=== PATIENT | female | born 1980 | race Caucasian/White ===

== ENCOUNTER 2017-09-19 13:44 | Emergency (ER) | payer OTHER, SELFPAY ==
[2017-09-19 15:11] VITALS: BP 113/72; PULSE 85; RESP 20; TEMP 36.6; O2SAT 100; BMI 24.0
[2017-09-19 15:23] LABS: UTC Influenza A Antigen Negative (Negative); UTC Influenza B Antigen Negative (Negative)
--- NOTE | 2017-09-19 16:03 | HMH.EDUTC ---
[facility] [place] Impression: Influenza-like illness, Exposure to the flu Disposition: Home, Self-Care Condition on Discharge: Good Instructions: DI for Viral Upper Respiratory Infection -- Adult, DI for Influenza -- Adult Additional Instructions: * No sign of bacterial infection. Likely viral. Virus can take 7-14 days to run their course. this could be the onset of the flu but a false negative flu test since symptoms just started. * Start Tamiflu today if you are going to take it. Discussed risks and possible benefits. * Lots of rest * Increase fluids, water, gatorade, powerade, pedialyte if infant/toddler/child * Monitor Temp. Tylenol every 4 hours as needed no more then 5 times a day or 4000mg in 24 hours and/or ibuprofen every 6 hours as needed no more then 3200mg in 24 hours (as long as your primary care doctor has told you that it is ok to take both) for fever/aches/pain. ER if fever no less than 101 despite tylenol and Ibuprofen * You (or your child) are contagious until no fever, aches, chills x 24 hours without medication for symptoms. * warm salt water gargles * warm fluids * sore throat lozenges * sleep elevated * humidifier/vaporizer Prescriptions: Oseltamivir Phosphate [Tamiflu 75mg Capsule] 75 mg PO BID #10 cap Referrals: Binta Driver APRN [Primary Care Provider] - (IMMEDIATELY for new or worsening symptoms, improvement followed by suddenly feeling worse OR no noticeable improvement over the next 48-72 hours. 911 for difficulty breathing ) Time of Disposition: 16:27 Medical Decision Making Vital Signs: 09/19/17 15:11 Temperature 97.9 F Temperature Source Temporal Artery Scan Pulse Rate [Right Radial] 85 Respiratory Rate 20 Blood Pressure [Right Arm] 113/72 Blood Pressure Mean [Right Arm] 85 Blood Pressure Source [Right Arm] Automatic Cuff Blood Pressure Position [Right Arm] Sitting 02 Sat by Pulse Oximetry 100 Oxygen Delivery Method Room Air - Lab Data Lab Results 09/19/17 15:12: Influenza Type A Ag Negative, Influenza Type B Ag Negative - Claude Inquiry Pt receiving controlled substance: No [facility] [place] - General Stated complaint: cough,runny nose,poss flu Time Seen by Provider: 09/19/17 16:03 Mode of Arrival: Family Vehicle Source of Information: Patient Limitations: No Limitations Description of Symptoms (Recalled from Triage Doc. by RN): COUGHING, STUFFY NOSE, FEVERISH, CHILLS. HEENT Symptoms (Recalled from RN notes): Yes (RUNNY NOSE, FEVERISH, CHILLS) Resp Symptoms (Recalled from RN notes): Yes (COUGH) Skin Symptoms (Recalled from RN notes): No MS Symptoms (Recalled from RN notes): No Functional Status (Recalled from RN notes): NA - History of Present Illness Provider Complaint: c/o possible flu. Cough, stuffy nose, feeling feverish and chills new today. Son w/ flu yesterday and spouse dx 2 days ago. Wants flu test and tamiflu. hasn't taken or tried anything for symptoms. Has had flu vaccine. - Related Data Home Medications Medication Instructions Recorded Confirmed Metoprolol Tartrate [Lopressor 25 mg PO BID 09/19/17 09/19/17 25mg tablet] Previous Rx's Medication Instructions Recorded Oseltamivir Phosphate [Tamiflu 75 mg PO BID #10 cap 09/19/17 75mg Capsule] Allergies Allergy/AdvReac Type Severity Reaction Status Date / Time No Known Allergies Allergy Verified 09/19/17 15:17 - Worker's Comp Is this a Worker's Comp case?: No [facility] History I have reviewed the patient's past medical history: Yes (seasonal allergies, irregular HR) Other Surgeries: Yes: Tubal Ligation, Other (uteral ablation) - *Social History Alcohol Intake: never - Psychiatric History Expresses thoughts of harming self/others: None Suicide Plan Description: No Plan ROS Obtained: Yes Systems reviewed as appropropriate & no additional complaint - Constitutional Reports chills, Reports fatigue, Denies anorexia, Denies body ache(s) - Eyes Denies discharge
--- NOTE | 2017-09-19 16:09 | ED_ITS ---
[facility] – [place] Disposition Clinical Impression: Influenza-like illness, Exposure to the flu Disposition: Home, Self-Care Condition on Discharge: Good Instructions: DI for Viral Upper Respiratory Infection -- Adult, DI for Influenza -- Adult Additional Instructions: * No sign of bacterial infection. Likely viral. Virus can take 7-14 days to run their course. this could be the onset of the flu but a false negative flu test since symptoms just started. * Start Tamiflu today if you are going to take it. Discussed risks and possible benefits. * Lots of rest * Increase fluids, water, gatorade, powerade, pedialyte if infant/toddler/child * Monitor Temp. Tylenol every 4 hours as needed no more then 5 times a day or 4000mg in 24 hours and/or ibuprofen every 6 hours as needed no more then 3200mg in 24 hours (as long as your primary care doctor has told you that it is ok to take both) for fever/aches/pain. ER if fever no less than 101 despite tylenol and Ibuprofen * You (or your child) are contagious until no fever, aches, chills x 24 hours without medication for symptoms. * warm salt water gargles * warm fluids * sore throat lozenges * sleep elevated * humidifier/vaporizer Prescriptions: Oseltamivir Phosphate [Tamiflu 75mg Capsule] 75 mg PO BID #10 cap Referrals: Binta Driver APRN [Primary Care Provider] - (IMMEDIATELY for new or worsening symptoms, improvement followed by suddenly feeling worse OR no noticeable improvement over the next 48-72 hours. 911 for difficulty breathing ) Time of Disposition: 16:27 Medical Decision Making Vital Signs: 09/19/17 15:11 Temperature 97.9 F Temperature Source Temporal Artery Scan Pulse Rate [Right Radial] 85 Respiratory Rate 20 Blood Pressure [Right Arm] 113/72 Blood Pressure Mean [Right Arm] 85 Blood Pressure Source [Right Arm] Automatic Cuff Blood Pressure Position [Right Arm] Sitting 02 Sat by Pulse Oximetry 100 Oxygen Delivery Method Room Air - Lab Data Lab Results 09/19/17 15:12: Influenza Type A Ag Negative, Influenza Type B Ag Negative - Claude Inquiry Pt receiving controlled substance: No [facility] [place] HPI - General Stated complaint: cough,runny nose,poss flu Time Seen by Provider: 09/19/17 16:03 Mode of Arrival: Family Vehicle Source of Information: Patient Limitations: No Limitations Description of Symptoms (Recalled from Triage Doc. by RN): COUGHING, STUFFY NOSE , FEVERISH, CHILLS. HEENT Symptoms (Recalled from RN notes): Yes (RUNNY NOSE, FEVERISH, CHILLS) Resp Symptoms (Recalled from RN notes): Yes (COUGH) Skin Symptoms (Recalled from RN notes): No MS Symptoms (Recalled from RN notes): No Functional Status (Recalled from RN notes): NA - History of Present Illness Provider Complaint: c/o possible flu. Cough, stuffy nose, feeling feverish and chills new today. Son w/ flu yesterday and spouse dx 2 days ago. Wants flu test and tamiflu. hasn't taken or tried anything for symptoms. Has had flu vaccine. - Related Data Home Medications Medication Instructions Recorded Confirmed Metoprolol Tartrate [Lopressor 25 mg PO BID 09/19/17 09/19/17 25mg tablet] Previous Rx's Medication Instructions Recorded Oseltamivir Phosphate [Tamiflu 75 mg PO BID #10 cap 09/19/17 75mg Capsule] Allergies Allergy/AdvReac Type Severity Reaction Status Date / Time No Known Allergies Allergy Verified
== END 2017-09-19 16:36 | disposition home or self-care (01) ==
PROVIDERS: Emergency Provider Nurse Practitioner Family; Family Provider Nurse Practitioner Family; PCP Nurse Practitioner Family
DX: Z20.828 Contact with and (suspected) exposure to other viral communicable diseases (principal); R05 Cough; R50.9 Fever, unspecified
CPT/HCPCS: 87276; 87804; 99202

== ENCOUNTER 2017-10-03 08:57 | Emergency (ER) | payer OTHER, SELFPAY ==
[2017-10-03 08:58] VITALS: BP 122/74; PULSE 74; RESP 16; TEMP 36.5; O2SAT 99; BMI 22.4
--- NOTE | 2017-10-03 09:10 | HMH.EDUTC ---
[facility] – [place] Disposition Clinical Impression: Viral URI Disposition: Home, Self-Care Condition on Discharge: Good Instructions: DI for Fever (Symptom) -- Adult Additional Instructions: * Monitor Temp. Tylenol and/or Ibuprofen as needed. ER if fever is no less than 101 despite alternating Tylenol and Ibuprofen * Encourage fluids, water, Gatorade, powerade, pedialyte if /toddler/or child * Warm salt water gargles for throat irritation *Warm fluids *Sore throat lozenges *Sleep elevated *humidifier or vaporizer Lots of rest Increase fluids, water, Gatorade, powerade *Flonase 2 sprays each nostril daily but may take 2-3 days to notice improvement with it *Bromfed may cause drowsiness. Know how it effect you or your child. Before driving, caring for small children or sending your child to school *Your throat swab was sent to lab for culture. Those results area typically sent to your primary care physician. Be sure to follow up in 2-3 days if no improvement so they can review those results and treat if necessary If you dont have primary care I recommend you get one, but in the mean time you will have to return to a walk in clinic Follow up IMMEDIATELY for new or worsening of symptoms OR no noticeable improvement over the next 48-72 hours. 911 immediately for any life threatening symptoms such as chest pain or difficulty breathing Prescriptions: Brompheniramine/Pseudoephed/Dm [Bromfed DM Cough Syrup 5mL] 10 ml PO Q4H PRN #200 syrup PRN Reason: Cough Fluticasone Propionate [Flonase 50mcg nasal spray 16gm] 2 spr NS DAILY #1 bottle Loratadine [Claritin 10mg Tablet] 10 mg PO DAILY #30 tab Referrals: Binta Driver APRN [Primary Care Provider] - Time of Disposition: 09:28 Medical Decision Making - Medical Records Medical records reviewed: Yes: I reviewed the patient's medical records. Vital Signs: 10/03/17 08:58 Temperature 97.7 F Temperature Source Oral Pulse Rate [Left Brachial] 74 Respiratory Rate 16 Blood Pressure [Right Arm] 122/74 Blood Pressure Mean [Right Arm] 90 Blood Pressure Source [Right Arm] Automatic Cuff Blood Pressure Position [Right Arm] Sitting 02 Sat by Pulse Oximetry 99 Oxygen Delivery Method Room Air - Claude Inquiry Pt receiving controlled substance: No Claude was queried for this patient: No [facility] [place] HPI - General Stated complaint: headache chills nausea Mode of Arrival: Ambulatory Source of Information: Patient Limitations: No Limitations Description of Symptoms (Recalled from Triage Doc. by RN): Pt c/o low grade fever and nausea this morning HEENT Symptoms (Recalled from RN notes): No Resp Symptoms (Recalled from RN notes): No Skin Symptoms (Recalled from RN notes): No MS Symptoms (Recalled from RN notes): No Functional Status (Recalled from RN notes): NA - History of Present Illness Provider Complaint: Patient states that she has the flu about 3-4 weeks ago State that she feels the same way as she did then State that she has been having fever, chills, sinus pain and pressure along with some nausea since yesterday State that last night her fever was 101.0 States that she thinks she thinks she has the flu again. State that her nose has been running clear - Related Data Home Medications Medication Instructions Recorded Confirmed Metoprolol Tartrate [Lopressor 25 mg PO BID 09/19/17 09/19/17 25mg tablet] Previous Rx's Medication Instructions Recorded Oseltamivir Phosphate [Tamiflu 75 mg PO BID #10 cap 09/19/17 75mg Capsule] Brompheniramine/Pseudoephed/Dm 10 ml PO Q4H PRN #200 syrup 10/03/17 [Bromfed DM Cough Syrup 5mL] Fluticasone Propionate [Flonase 2 spr NS DAILY #1 bottle 10/03/17 50mcg nasal spray 16gm] Loratadine [Claritin 10mg Tablet] 10 mg PO DAILY #30 tab 10/03/17 Allergies Allergy/AdvReac Type Severity Reaction Status Date / Time No Known Allergies Allergy Verified 09/19/17 15:17 - Worker's Comp Is this a Worker's Comp case?: No [facility] History I
--- NOTE | 2017-10-03 09:14 | ED_ITS ---
[facility] [place] Clinical Impression: Viral URI Disposition: Home, Self-Care Condition on Discharge: Good Instructions: DI for Fever (Symptom) -- Adult Additional Instructions: * Monitor Temp. Tylenol and/or Ibuprofen as needed. ER if fever is no less than 101 despite alternating Tylenol and Ibuprofen * Encourage fluids, water, Gatorade, powerade, pedialyte if /toddler/or child * Warm salt water gargles for throat irritation *Warm fluids *Sore throat lozenges *Sleep elevated *humidifier or vaporizer Lots of rest Increase fluids, water, Gatorade, powerade *Flonase 2 sprays each nostril daily but may take 2-3 days to notice improvement with it *Bromfed may cause drowsiness. Know how it effect you or your child. Before driving, caring for small children or sending your child to school *Your throat swab was sent to lab for culture. Those results area typically sent to your primary care physician. Be sure to follow up in 2-3 days if no improvement so they can review those results and treat if necessary If you don? t have primary care I recommend you get one, but in the mean time you will have to return to a walk in clinic Follow up IMMEDIATELY for new or worsening of symptoms OR no noticeable improvement over the next 48-72 hours. 911 immediately for any life threatening symptoms such as chest pain or difficulty breathing Prescriptions: Brompheniramine/Pseudoephed/Dm [Bromfed DM Cough Syrup 5mL] 10 ml PO Q4H PRN # 200 syrup PRN Reason: Cough Fluticasone Propionate [Flonase 50mcg nasal spray 16gm] 2 spr NS DAILY #1 bottle Loratadine [Claritin 10mg Tablet] 10 mg PO DAILY #30 tab Referrals: Binta Driver APRN [Primary Care Provider] - Time of Disposition: 09:28 Medical Decision Making - Medical Records Medical records reviewed: Yes: I reviewed the patient's medical records. Vital Signs: 10/03/17 08:58 Temperature 97.7 F Temperature Source Oral Pulse Rate [Left Brachial] 74 Respiratory Rate 16 Blood Pressure [Right Arm] 122/74 Blood Pressure Mean [Right Arm] 90 Blood Pressure Source [Right Arm] Automatic Cuff Blood Pressure Position [Right Arm] Sitting 02 Sat by Pulse Oximetry 99 Oxygen Delivery Method Room Air - Claude Inquiry Pt receiving controlled substance: No Claude was queried for this patient: No [facility] [place] - General Stated complaint: headache chills nausea Mode of Arrival: Ambulatory Source of Information: Patient Limitations: No Limitations Description of Symptoms (Recalled from Triage Doc. by RN): Pt c/o low grade fever and nausea this morning HEENT Symptoms (Recalled from RN notes): No Resp Symptoms (Recalled from RN notes): No Skin Symptoms (Recalled from RN notes): No MS Symptoms (Recalled from RN notes): No Functional Status (Recalled from RN notes): NA - History of Present Illness Provider Complaint: Patient states that she has the flu about 3-4 weeks ago State that she feels the same way as she did then State that she has been having fever, chills, sinus pain and pressure along with some nausea since yesterday State that last night her fever was 101.0 States that she thinks she thinks she has the flu again. State that her nose has been running clear - Related Data Home Medications Medication Instructions Recorded Confirmed Metoprolol Tartrate [Lopressor 25 mg PO BID 09/19/17 09/19/17 25mg tablet] Previous Rx's Medication Instructions Recorded [place]t
[2017-10-03 09:23] LABS: UTC Influenza A Antigen Negative (Negative); UTC Influenza B Antigen Negative (Negative)
[2017-10-03 09:32] VITALS: BP 132/74; PULSE 75; RESP 14; TEMP 36.7; O2SAT 98
== END 2017-10-03 09:33 | disposition home or self-care (01) ==
PROVIDERS: Emergency Provider Nurse Practitioner; Family Provider Nurse Practitioner Family; PCP Nurse Practitioner Family
DX: J06.9 Acute upper respiratory infection, unspecified (principal)
CPT/HCPCS: 87804; 99202

== ENCOUNTER 2017-11-26 21:16 | Emergency (ER) | payer OTHER, SELFPAY ==
[2017-11-26 21:23] VITALS: BP 131/79; PULSE 69; RESP 18; TEMP 37.1; O2SAT 99; BMI 22.8
--- NOTE | 2017-11-26 21:30 | CT_ITS ---
CT abdomen pelvis wo con COMPARISON: None HISTORY: Left-sided abdominal pain TECHNIQUE: Multiaxial scans obtained from hemidiaphragms the pelvic floor and were performed without IV or oral contrast. Sagittal coronal reformats were evaluated as well. FINDINGS: The lower lung avalos are clear of infiltrate. There is a calcified nodule in the lingula. There is no pleural fluid. The liver spleen stomach pancreas and gallbladder appear grossly normal. Stomach is partially distended with ingested food particles and the gallbladder is partially contracted but there are no definite stones. The adrenal glands are normal. The kidneys are normal size. There is a 4 to 5 mm nonobstructing calculus lower pole right kidney. There is no obstructive uropathy of either kidney. Small bowel appears normal. What appears to be the appendix is normal caliber and retrocecal in location. There are no pericecal inflammatory changes. There is a moderate amount stool and gas in the ascending transverse and descending colon. There are tubal ligation clips in place. The uterus is upper limits normal size and in the midline. The urinary bladder is decompressed, there is no free fluid in the pelvis. IMPRESSION: Small nonobstructing calculus lower pole right kidney otherwise essentially unremarkable CT scan abdomen and pelvis. I agree with the [facility] report except for lack of mention of the right renal calculus
[2017-11-26 21:52] LABS: Microscopic, Urine URINE MICROSCOPIC (MICROSCOPIC)
[2017-11-26 21:56] LABS: Appearance,Urine CLEAR (Clear); Basophils % 0.5 % (0.1-2.0); Bilirubin,Urine Negative (Negative); Blood, Urine Negative (Negative); Color,Urine YELLOW (Yellow); Eosinophils # 0.1 K/mm3 (0.0-0.4); Eosinophils % 1.9 % (0.1-12.0); Glucose,Urine (UA) Negative (Negative); Hemoglobin 13.3 g/dL (12.2-16.2); Ketones,Urine Negative (Negative); Leukocyte Esterase,Urine Negative (Negative); Lymphocytes % 33.6 K/mm3 (10-50); Mean Corpuscular HGB Conc 33.3 g/dL (31.8-35.4); Mean Corpuscular Hemoglobin 29.7 pg (27.0-31.2); Mean Corpuscular Volume 89.2 fl (81-99); Mean Platelet Volume 6.9 fl (7.4-10.4); Monocytes # 0.4 K/mm3 (0.1-1.0); Monocytes % 5.9 % (1.7-9.3); Neutrophils # 3.5 K/mm3 (1.8-7.8); Neutrophils % 58.1 % (37.0-80.0); Nitrate,Urine Negative (Negative); PH,Urine 7.5 (5.0-8.5); Platelet Count 255 K/mm3 (142-424); Protein,Urine Negative (Negative); Red Blood Count 4.48 M/mm3 (4.20-5.40); Red Cell Distribution Width 12.9 % (11.5-17.5)
[2017-11-26 21:58] LABS: Urine Pregnancy, HCG Qual. Negative (Negative)
[2017-11-26 22:10] LABS: Alanine Aminotransferase 24 U/L (12-78); Albumin Level 4.1 gm/dL (3.4-5.0); Albumin/Globulin Ratio 1.1 (1.1-1.8); Alkaline Phosphatase 63 U/L (46-116); Anion Gap 11.9 mEq/L (5-15); Aspartate Amino Transferase 15 U/L (15-37); Bilirubin,Total 0.3 mg/dL (0.2-1.0); Blood Urea Nitrogen 15 mg/dL (7-18); Calcium 8.2 mg/dL (8.5-10.1); Carbon Dioxide 29 mmol/L (21.0-32.0); Chloride 104 mmol/L (98-107); Creatinine Clearance Estimated 109 mL/min (0-300); Estimated Glomerular Filt Rate 82 ml/min (>60); GFR (African American) 99 ML/MIN (>60); Globulin 3.6 gm/dl (1.3-3.2); Glucose 86 mg/dL (74-106); Potassium 3.9 mmoL/L (3.5-5.1); Sodium 141 mmol/L (136-145); Total Protein,Serum 7.7 gm/dL (6.4-8.2)
[2017-11-26 22:19] LABS: Amylase 73 U/L (25-125); Lipase 172 u/L (73-393)
[2017-11-26 22:40] LABS: Amorphous Sediment,Urine Trace /lpf; Bacteria,Urine 1+ /lpf; Mucus,Urine 1+ /lpf
--- NOTE | 2017-11-26 23:11 | HMH.EDNVD ---
ED Disposition Clinical Impression: Abdominal pain Qualifiers: Abdominal location: right lower quadrant Qualified Code(s): R10.31 - Right lower quadrant pain Disposition: Home, Self-Care Condition on Discharge: Good Instructions: DI for Acute Abdomen Additional Instructions: see pcp as needed for follow up Referrals: Binta Driver APRN [Primary Care Provider] - - Critical Care Critical Care Time: No Attestation: On 11/26/17, the high probability of a clinically significant, sudden or life threatening deterioration of the following system(s) required my full and direct attention, intervention and personal management. The time I documented below is in addition to time spent performing reported procedures but includes the following listed in this critical care notation. Medical Decision Making - Medical Records Medical records reviewed: Yes: I reviewed the patient's medical records. - Claude Inquiry Pt receiving controlled substance: No Vital Signs: 11/26/17 21:23 Temperature 98.7 F Temperature Source Oral Pulse Rate [Right Radial] 69 Respiratory Rate 18 Blood Pressure [Right Arm] 131/79 Blood Pressure Mean [Right Arm] 96 Blood Pressure Source [Right Arm] Automatic Cuff Blood Pressure Position [Right Arm] Sitting 02 Sat by Pulse Oximetry 99 Oxygen Delivery Method Room Air - Lab Data Lab results reviewed: Yes: I reviewed the patient's lab results. Lab Results 11/26/17 21:40: Urine Color Yellow, Urine Appearance Clear, Urine pH 7.5, Ur Specific Huffman 1.020, Urine Protein Negative, Urine Glucose (UA) Negative, Urine Ketones Negative, Urine Blood Negative, Urine Nitrate Negative, Urine Bilirubin Negative, Urine Urobilinogen 2.0, Ur Leukocyte Esterase Negative, Urine WBC 3-5, Ur Squamous Epith Cells 10-20, Amorphous Sediment Trace, Urine Bacteria 1+, Urine Mucus 1+ 11/26/17 21:40: WBC 6.0, RBC 4.48, Hgb 13.3, Hct 40.0, MCV 89.2, MCH 29.7, MCHC 33.3, RDW 12.9, Plt Count 255, MPV 6.9 L, Neut % (Auto) 58.1, Lymph % (Auto) 33.6, [place] % (Auto) 5.9, Eos % (Auto) 1.9, Baso % (Auto) 0.5, Neut # (Auto) 3.5, Lymph # (Auto) 2.0, [place] # (Auto) 0.4, Eos # (Auto) 0.1, Baso # (Auto) 0.0 11/26/17 21:40: Urine HCG, Qual Negative 11/26/17 21:40: Sodium 141, Potassium 3.9, Chloride 104, Carbon Dioxide 29, Anion Gap 11.9, BUN 15, Creatinine 0.80, Estimated Creat Clear 109, Estimated GFR 82, Est GFR ( Amer) 99, Glucose 86, Calcium 8.2 L, Total Bilirubin 0.3, AST 15, ALT 24, Alkaline Phosphatase 63, Total Protein 7.7, Albumin 4.1, Globulin 3.6 H, Albumin/Globulin Ratio 1.1 11/26/17 21:40: Amylase 73, Lipase 172 Result diagrams: 11/26/17 21:40 11/26/17 21:40 Orders (Tests/Meds): ORDERS Category Date Time Status CT abdomen pelvis wo con Stat Cat Scan 11/26/17 21:30 Taken - CT Data CT Scan: Abdomen, Pelvis Time Received: 23:[address] Reviewed: Yes: I have viewed the radiologist's interpretation Preliminary Findings: Normal/NAD Nausea/Vomiting/Diarrhea HPI - General Chief complaint: Abdominal Pain Stated complaint: pain in right side Time Seen by Provider: 11/26/17 21:30 Mode of Arrival: Ambulatory Limitations: No Limitations Description of Symptoms (Recalled from ER Triage Doc. by RN): Pt reports RLQ pain x 2 days - History of Present Illness HPI Narrative: acute onset of rt sided abd pain MD complaint: nausea Onset (ago): hour(s) Associated Abdominal Pain: Yes Location of pain: RLQ Severity: moderate Consistency: now resolved - Related Data Home Medications Medication Instructions Recorded Confirmed Metoprolol Tartrate 100 mg PO DAILY 11/26/17 11/26/17 Allergies Allergy/AdvReac Type Severity Reaction Status Date / Time No Known Allergies Allergy Verified 09/19/17 15:[address] [facility] History I have reviewed the patient's past medical history: Yes Medical History: Denies:: Cancer, Diabetes Mellitus Type 1, Diabetes Mellitus Type 2, MRSA Other Surgeries: Yes: Tubal Ligation
[2017-11-26 23:36] VITALS: BP 125/89; PULSE 87; RESP 18; TEMP 37; O2SAT 94
== END 2017-11-26 23:37 | disposition home or self-care (01) ==
PROVIDERS: Emergency Provider Emergency Medicine; Family Provider Nurse Practitioner Family; PCP Nurse Practitioner Family
DX: R10.31 Right lower quadrant pain (principal)
CPT/HCPCS: 74176; 80053; 81001; 81025; 82150; 83690; 85025; 99211; 99283

== ENCOUNTER → 2019-06-16 13:09 | Outpatient (CLI) | payer OTHER, SELFPAY ==
--- NOTE | 2019-06-16 13:13 | US_ITS ---
PROCEDURE: US TRANSVAGINAL CLINICAL INDICATION: us tv- pelvic pain COMPARISON: PTV US PELVIS-TRANSVAGINAL ONLY from 07/05/2015 FINDINGS: Uterus measures 7.2 x 4.0 x 6.2 centimeters. Uterus is retroverted or retroflexed. There is a some small round 10 millimeter for anechoic focus in the uterine cavity with through transmission. There is no cul-de-sac fluid. Endometrial thickness is 8.4 millimeters. Left ovary measures 2.2 x 1.9 x 3.1 centimeters with a few anechoic cystic foci, largest of which is 1.4 centimeters. There is blood flow to the left ovary. Right ovary is 3.4 x 1.4 x 2.5 centimeters with normal blood flow and multiple anechoic foci largest is 1.6 centimeters. IMPRESSION: Bilateral benign ovarian cysts. Small rounded focus of fluid in the endometrial cavity. Dictated by: Fabio Thornton 06/16/2019 16:42 Electronically signed by Fabio Thornton in [facility] 06/16/2019 16:42
== END ==
PROVIDERS: PCP Nurse Practitioner Family; Visit Provider Nurse Practitioner Obstetrics & Gynecology
DX: R10.2 Pelvic and perineal pain (principal)
CPT/HCPCS: 76830

== ENCOUNTER 2020-09-15 13:33 | Emergency (ER) | payer OTHER, SELFPAY ==
[2020-09-15 14:05] VITALS: BP 105/69; PULSE 89; RESP 14; TEMP 36.6; O2SAT 99; BMI 22.4
--- NOTE | 2020-09-15 14:20 | HMH.EDUTC ---
[facility] [place] Disposition Clinical Impression: Viral syndrome, Exposure to COVID-19 virus Disposition: Home, Self-Care Condition on Discharge: Good Instructions: Preventing the Spread of Coronavirus Discharge Instructions Additional Instructions: Drink plenty of fluids. Take tylenol for pain or fever. Take the medications as directed. Follow up with your regular doctor. GO TO THE ER FOR ANY WORSENING SYMPTOMS Prescriptions: Ondansetron [Zofran 4mg ODT] 4 mg PO Q8HP PRN #12 tab.rapdis PRN Reason: Nausea Transmission Status: Received by [id number] Referrals: Radha Flynn [Primary Care Provider] - Time of Disposition: 14:30 Medical Decision Making - Medical Records Medical records reviewed: No: I reviewed the patient's medical records. - Claude Inquiry Pt receiving controlled substance: No Vital Signs: 09/15/20 14:05 09/15/20 14:34 Temperature 97.8 F 97.8 F Temperature Source Oral Pulse Rate 89 Pulse Rate [Right Brachial] 89 Respiratory Rate 14 14 Blood Pressure 105/69 L Blood Pressure [Right Arm] 105/69 L Blood Pressure Mean [Right Arm] 81 Blood Pressure Source [Right Arm] Automatic Cuff Blood Pressure Position [Right Arm] Sitting 02 Sat by Pulse Oximetry 99 Oxygen Delivery Method Room Air Orders (Tests/Meds): ORDERS Category Date Time Status Covid-19 Nasal PCR ([facility]) Routine Lab 09/15/20 14:00 Received [facility] [place] HPI - General Stated complaint: covid exposure Time Seen by Provider: 09/15/20 14:28 - History of Present Illness Provider Complaint: She is here needing to be tested for covid. Her currently has covid. She states that since yesteday she has had body aches and chilling. She has also had some nausea/vomiting. - Related Data Home Medications Medication Instructions Recorded Confirmed Cetirizine HCl 10 mg PO DAILY 02/05/18 11/06/19 multivitamin 1 cap PO DAILY 06/10/19 11/06/19 Previous Rx's Medication Instructions Recorded erythromycin 5 mg/gram (0.5 %) eye 0.5 inch OPHTHALMIC BID PRN 7 Days 11/06/19 ointment #1 g Ondansetron [Zofran 4mg ODT] 4 mg PO Q8HP PRN #12 tab.rapdis 09/15/20 Allergies Allergy/AdvReac Type Severity Reaction Status Date / Time No Known Allergies Allergy Verified 11/06/19 17:23 [facility] History - Hepatitis A Screen Attestation statement:: This patient has been screened for Hepatitis A risk factors. I have reviewed the patient's past medical history: Yes Medical History: Reports:: Urinary Tract Infection Denies:: Cancer, Diabetes Mellitus Type 1, Diabetes Mellitus Type 2, MRSA Other Surgeries: Yes: Tubal Ligation, Other Amputation: No Fractures: No Comment: TVT 2017. 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 ROS Obtained: Yes All systems reviewed & no additional complaints - Constitutional Constitutional: Reports system reviewed and no additional complaints, except as docu - Eyes Eyes: Reports system reviewed and no additional complaints, except as docu - ENT Ears, Nose, Mouth, and Throat: Reports system reviewed and no additional complaints, except as docu - Cardiovascular Cardiovascular: Reports system reviewed and no additional complaints, except as docu - Respiratory Respiratory: Yes system reviewed and no additional complaints, except as docu - Gastrointestinal Gastrointestingal: Reports: system reviewed and no additional complaints, except as docu Physical Exam - General General appearance: alert, in no apparent distress - Head Head exam: atraumatic, normocephalic, normal inspection - Eye Eye exam: Present: normal appearance, PERRL, EOMI - ENT ENT exam: Present: normal exam, normal oropharynx, mucous membranes moist, TM's normal bilaterally, normal ex
[2020-09-15 14:34] VITALS: BP 105/69; PULSE 89; RESP 14; TEMP 36.6; O2SAT 99
--- NOTE | 2020-09-15 19:01 | PC.NURSE ---
patient notified of positive covid results
== END 2020-09-15 14:35 | disposition home or self-care (01) ==
PROVIDERS: Emergency Provider Nurse Practitioner Family; PCP Nurse Practitioner Family
DX: U07.1 COVID-19 (principal)
CPT/HCPCS: 99202; G0463; U0003

== ENCOUNTER 2021-02-14 11:41 | Emergency (ER) | payer OTHER, SELFPAY ==
[2021-02-14 11:42] VITALS: BP 110/71; PULSE 82; RESP 20; TEMP 36.8; O2SAT 97; BMI 22.4
[2021-02-14 11:58] VITALS: BP 110/71; PULSE 82; RESP 20; TEMP 36.8; O2SAT 97
--- NOTE | 2021-02-14 11:59 | HMH.EDUTC ---
[facility] [place] Disposition Clinical Impression: Muscle spasm Disposition: Home, Self-Care Condition on Discharge: Good Instructions: DI for Muscle Spasm, Methocarbamol, Etodolac Additional Instructions: *Etodolac michele 8 hours with meal as needed for pain/inflammation *Not additional anti-inflammatory like Ibuprofen, motrin, aleve, advil with the above amount of Etodolac. You can still take Tylenol every 4 hours as needed if you need something else for pain *Ice 20 minutes every 2 hours for the first 48 hours after the initial injury followed by moist heat every 20 minutes 3-4 times a day to affected area *Muscle relaxer as prescribed as needed for muscle spasms but remember, it WILL cause drowsiness You cannot take it and drive, operate machinery or care for small children. *Keep this area active, no movement leads to more stiffness, However take it easy and avoid heavy lifting pushing or pulling *Follow up with you family doctor if no improvement for further treatment Change your pillow and try out multiple pillows and choose one that holds your neck in alignment to help prevent spasm. Buckwheat pillows are recommended by multiple chiropractors to help with neck pain Follow up with Family Doctor if needed Straight to ER if any life threatening symptoms Prescriptions: Etodolac 200 mg PO TID PRN #15 cap PRN Reason: Moderate Pain Transmission Status: Pending to [facility] methocarbamoL [Methocarbamol] 750 mg PO BID PRN #20 tab PRN Reason: Muscle Spasm Transmission Status: Pending to [facility] Referrals: Radha Flynn [Primary Care Provider] - As needed Time of Disposition: 12:18 Medical Decision Making - Claude Inquiry Pt receiving controlled substance: No Claude was queried for this patient: No Vital Signs: 02/14/21 11:42 02/14/21 11:58 Temperature 98.3 F 98.3 F Temperature Source Oral Pulse Rate 82 Pulse Rate [Left Brachial] 82 Respiratory Rate 20 20 Blood Pressure 110/71 Blood Pressure [Left Arm] 110/71 Blood Pressure Mean [Left Arm] 84 Blood Pressure Source [Left Arm] Automatic Cuff Blood Pressure Position [Left Arm] Sitting 02 Sat by Pulse Oximetry 97 Oxygen Delivery Method Room Air Medical Decision Narrative: Discussed xray wit patient and she declined State that pain has been off and on since Apr. Denies known injury however does do alot of heavy lifting and lifting child [facility] [place] HPI - General Stated complaint: neck pain Time Seen by Provider: 02/14/21 11:59 Mode of Arrival: Ambulatory Source of Information: Patient Limitations: No Limitations Description of Symptoms (Recalled from Triage Doc. by RN): PATIENT C/O RIGHT NECK AND SHOULDER PAIN WITH MOVEMENT, NO KNOWN INJURY. SHE STATES SHE HAS BEEN HAVING THE PAIN SINCE APRIL AND HAS BEEN SEEING A CHIROPRACTOR WHICH HAS HELPED SOME, HOWEVER PAIN HAS GOTTEN WORSE OVER THE LAST WEEK HEENT Symptoms (Recalled from RN notes): No Resp Symptoms (Recalled from RN notes): No Skin Symptoms (Recalled from RN notes): No MS Symptoms (Recalled from RN notes): Yes Functional Status (Recalled from RN notes): WNL - History of Present Illness Provider Complaint: Patient state that she has been having muscle spasm like pain in her right shoulder area on and off since Apr of last year State that she has seen her PCP and seen chiropractor and gets some relief when he can get the tension out of the muscle States that today she was having pain and stiffness again so she came in to see if she could get something to help - Related Data Home Medications Medication Instructions Recorded Confirmed Cetirizine HCl 10 mg PO DAILY 02/05/18 02/14/21 multivitamin 1 cap PO DAILY 06/10/19 02/14/21 Previous Rx's Medication Instructions Recorded Etodolac 200 mg PO TID PRN #15 cap 02/14/21 methocarbamoL [Methocarbamol] 750 mg PO BID PRN #20 tab 02/14/21 Allergies Allergy/AdvReac Type Severity Reaction Status Date / Time No Known Allergies Allerg
== END 2021-02-14 12:25 | disposition home or self-care (01) ==
PROVIDERS: Emergency Provider Nurse Practitioner; PCP Nurse Practitioner Family
DX: M62.838 Other muscle spasm (principal); M54.2 Cervicalgia
CPT/HCPCS: 99202; G0463

== ENCOUNTER → 2021-03-29 12:07 | Outpatient (CLI) | payer OTHER, SELFPAY ==
--- NOTE | 2021-03-29 12:11 | XR_ITS ---
PROCEDURE: XR CERVICAL SPINE 5V CLINICAL INDICATION: CERVICALGIA COMPARISON: No exams were available for comparison FINDINGS: Normal alignment. No fracture or dislocation. The disc spaces are well preserved. No significant foraminal narrowing. No cervical rib. There is minimal anterolisthesis of C4 on C5 2 mm which may be physiologic. IMPRESSION: No acute findings. Dictated by: Gold Valadez MD 03/29/2021 12:52 Gold Valadez MD in [place] 03/29/2021 12:52
== END ==
PROVIDERS: PCP Nurse Practitioner; Visit Provider Nurse Practitioner
DX: M54.2 Cervicalgia (principal)
CPT/HCPCS: 72050

== ENCOUNTER → 2021-05-15 14:45 | Outpatient (CLI) | payer OTHER, SELFPAY ==
--- NOTE | 2021-05-15 14:49 | MR_ITS ---
PROCEDURE: MR SHOULDER RT WO/W CON CLINICAL INDICATION: PAIN IN RIGHT SHOULDER COMPARISON: No exams were available for comparison TECHNIQUE: Routine multiplanar multi echo sequences are performed without gadolinium enhancement. FINDINGS: No evidence of rotator cuff tear. Mild tendinosis of the supraspinatus tendon. Mild subacromial stenosis. No evidence of labral tear. Bicipital tendon is in place. No fracture or dislocation. No significant effusion. IMPRESSION: Mild subacromial stenosis with mild tendinosis of the supraspinatus tendon. No evidence of rotator cuff tear or other significant anomaly. Dictated by: Gold Valadez MD 05/15/2021 17:29 Gold Valadez MD in [place] 05/15/2021 17:29
== END ==
PROVIDERS: PCP Nurse Practitioner; Visit Provider Nurse Practitioner Family
DX: M25.511 Pain in right shoulder (principal)
CPT/HCPCS: 73223; A9576

== ENCOUNTER 2021-05-23 16:00 | Outpatient (RCR) | payer OTHER, SELFPAY | END 2021-05-23 17:00 | disposition home or self-care (01) | LOC: PT.CARL 16:00 | PROVIDERS: PCP Nurse Practitioner; Visit Provider Nurse Practitioner | DX: M54.2 Cervicalgia (principal) | CPT/HCPCS: 20560; 97010; 97014; 97110; 97140; 97163; G0283 ==

== ENCOUNTER → 2021-05-31 09:49 | Outpatient (CLI) | payer OTHER, SELFPAY ==
--- NOTE | 2021-05-31 09:52 | XR_ITS ---
PROCEDURE: XR SHOULDER RT MIN 2V CLINICAL INDICATION: RT shoulder pain COMPARISON: No exams were available for comparison FINDINGS: No fracture or dislocation. No lytic or blastic change. There is normal mineralization. The joint spaces are well-preserved. No significant degenerative/arthritic changes. No erosive changes evident. Other findings:None. IMPRESSION: No acute findings. Dictated by: Gold Valadez MD 05/31/2021 11:25 Gold Valadez MD in [place] 05/31/2021 11:25
== END ==
PROVIDERS: PCP Nurse Practitioner Family; Visit Provider Orthopaedic Surgery
DX: M25.511 Pain in right shoulder (principal)
CPT/HCPCS: 73030

== ENCOUNTER 2021-07-16 16:00 | Outpatient (RCR) | payer OTHER, SELFPAY | END 2021-08-12 11:23 | disposition home or self-care (01) | LOC: PT.CARL 16:00 | PROVIDERS: PCP Nurse Practitioner Family; Visit Provider Orthopaedic Surgery | DX: M54.2 Cervicalgia (principal); M25.511 Pain in right shoulder | CPT/HCPCS: 97010; 97014; 97110; 97140; 97163; G0283 ==

== ENCOUNTER 2021-10-06 11:39 | Emergency (ER) | payer OTHER, SELFPAY ==
[2021-10-06 11:40] VITALS: BP 119/77; PULSE 85; RESP 18; TEMP 36.8; O2SAT 98; BMI 22.1
[2021-10-06 11:44] VITALS: BMI 22.1
--- NOTE | 2021-10-06 11:50 | PC.NURSE ---
covid swab sent to the lab
[2021-10-06 12:00] VITALS: BP 111/72
--- NOTE | 2021-10-06 12:06 | HMH.EDGENADL ---
ED Disposition Clinical Impression: Suspected COVID-19 virus infection Disposition: Home, Self-Care Condition on Discharge: Good Instructions: DI for COVID-19 (Suspected or Confirmed ) Additional Instructions: Quarantine yourself until you obtain your COVID-19 test result. You will be called with the result. If your test returns positive, follow these instructions for isolation and care: Rest, drink plenty of fluids. Tylenol or Ibuprofen for fever and/or aches and pains. Monitor your symptoms. IF YOU HAVE AN EMERGENCY WARNING SIGN (INCLUDING TROUBLE BREATHING), SEEK EMERGENCY MEDICAL CARE IMMEDIATELY. COVID-19 Isolation: People with COVID-19 should isolate for 5 days. Then if they are asymptomatic (no symptoms) or their symptoms are resolving (without fever for 24 hours), follow that by 5 days of wearing a mask when around others to minimize the risk of infecting people you encounter. If you test positive for COVID-19 and never develop symptoms, day 0 is the day of your positive viral test (based on the date you were tested) and day 1 is the first full day after your positive test. If you develop symptoms after testing positive, your 5-day isolation period must start over. Day 0 is your first day of symptoms. Day 1 is the first full day after your symptoms developed. What to do: Stay in a separate room from other household members, if possible. Use a separate bathroom, if possible. Avoid contact with other members of the household and pets. Don?t share personal household items, like cups, towels, and utensils. Wear a mask when around other people if able. Referrals: Radha Flynn [Primary Care Provider] - - Critical Care Critical Care Time: No Attestation: On 10/06/21, the high probability of a clinically significant, sudden or life threatening deterioration of the following system(s) required my full and direct attention, intervention and personal management. The time I documented below is in addition to time spent performing reported procedures but includes the following listed in this critical care notation. Medical Decision Making - Claude Inquiry Pt receiving controlled substance: No Vital Signs: 10/06/21 11:40 10/06/21 12:00 Temperature 98.2 F Temperature Source Oral Pulse Rate [Left Radial] 85 Respiratory Rate 18 Blood Pressure 111/72 Blood Pressure [Right Arm] 119/77 Blood Pressure Mean 80 Blood Pressure Mean [Right Arm] 91 Blood Pressure Source [Right Arm] Automatic Cuff Blood Pressure Position [Right Arm] Sitting 02 Sat by Pulse Oximetry 98 Oxygen Delivery Method Room Air - Lab Data Lab Results 10/06/21 12:00: Influenza Type A Ag Negative, Influenza Type B Ag Negative 10/06/21 12:00: Group A Strep Rapid Negative Orders (Tests/Meds): ORDERS Category Date Time Status Covid-19 Nasal PCR ([facility]) Routine Lab 10/06/21 11:45 Received Strep Screen Confirmation Stat Micro 10/06/21 12:00 Received General Adult HPI - General Chief complaint: Upper Respiratory Infection Stated complaint: congestion, sore throat Time Seen by Provider: 10/06/21 12:06 Mode of Arrival: Ambulatory Limitations: No Limitations Description of Symptoms (Recalled from ER Triage Doc. by RN): congestion, stuffy nose, sore throat and no appetite - History of Present Illness HPI narrative: Postnasal drip, congestion, sore throat since last night. Has been was diagnosed with a sinus infection yesterday but was not tested for COVID. The patient has been vaccinated against COVID and has had a booster. Denies fever or cough. - Related Data Home Medications Medication Instructions Recorded Confirmed Cetirizine HCl 10 mg PO DAILY 02/05/18 05/31/21 multivitamin 1 cap PO DAILY 06/10/19 05/31/21 Previous Rx's Medication Instructions Recorded Etodolac 200 mg PO TID PRN #15 cap 02/14/21 Allergies Allergy/AdvReac Type Severity Reaction Status Date / Time No Known All
[2021-10-06 12:30] VITALS: BP 112/75
[2021-10-06 12:33] LABS: Strep Scrn Group A (Rapid) Negative (Negative)
[2021-10-06 13:00] VITALS: BP 111/78
[2021-10-06 13:05] VITALS: BP 111/78; PULSE 85; RESP 18; TEMP 36.8; O2SAT 98
== END 2021-10-06 13:10 | disposition home or self-care (01) ==
PROVIDERS: Emergency Provider Emergency Medicine; PCP Nurse Practitioner Family
DX: J02.9 Acute pharyngitis, unspecified (principal); Z20.822 Contact with and (suspected) exposure to COVID-19
CPT/HCPCS: 87275; 87276; 87430; 99282; C9803; U0003; U0005

== ENCOUNTER 2021-10-18 14:10 | Emergency (ER) | payer OTHER, SELFPAY ==
[2021-10-18 14:15] VITALS: BP 117/80; PULSE 90; RESP 20; TEMP 37.1; O2SAT 98; BMI 23.2
--- NOTE | 2021-10-18 14:26 | HMH.EDUTC ---
[facility] [place] Disposition Clinical Impression: Bronchitis, Exposure to COVID-19 virus Disposition: Home, Self-Care Condition on Discharge: Good Instructions: DI for COVID-19 (Suspected or Confirmed ), Preventing the Spread of Coronavirus Discharge Instructions Additional Instructions: Drink plenty of fluids. Take tylenol or ibuprofen for pain or fever. Take the medications as directed. Follow up with your regular doctor. GO TO THE ER FOR ANY WORSENING SYMPTOMS Quarantine until you know the results of your covid-19 test. Notify your school or workplace of your results and follow their instructions regarding return to work/school. Prescriptions: Brompheniramine/Pseudoephed/Dm [Bromfed Dm Cough Syrup] 5 ml PO Q6HP PRN #240 ml PRN Reason: Cough [facility] methylPREDNISolone [Medrol] 4 mg PO DIRECTED 6 Days #21 packet Transmission Status: [facility] Azithromycin [Z-Jason 250mg Tab*] 250 mg PO UD DOSE PK #6 tab Transmission Status: [facility] Referrals: Radha Flynn [Primary Care Provider] - Time of Disposition: 15:14 Medical Decision Making - Medical Records Medical records reviewed: No: I reviewed the patient's medical records. - Claude Inquiry Pt receiving controlled substance: No Vital Signs: 10/18/21 14:15 10/18/21 14:57 Temperature 98.8 F 98.8 F Temperature Source Temporal Artery Scan Pulse Rate 90 Pulse Rate [Left Brachial] 90 Respiratory Rate 20 20 Blood Pressure 117/80 Blood Pressure [Right Arm] 117/80 Blood Pressure Mean [Right Arm] 92 Blood Pressure Source [Right Arm] Automatic Cuff Blood Pressure Position [Right Arm] Sitting 02 Sat by Pulse Oximetry 98 Oxygen Delivery Method Room Air - Lab Data Lab results reviewed: Yes: I reviewed the patient's lab results. Lab Results 10/18/21 14:20: Chlamy pneumoniae PCR Not detected, Adenovirus (PCR) Not detected, B. pertussis DNA (PCR) Not detected, Coronavirus OC43 (PCR) Not detected, Coronavirus HKU1 (PCR) Not detected, Coronavirus 229E (PCR) Not detected, SARS-CoV-2 (PCR) Not detected, Coronavirus NL63 (PCR) Not detected, Human Metapneumovir PCR Not detected, Influenza A (H1) PCR Not detected, Influ A (H1N1/09) PCR Not detected, Influenza A (H3) PCR Not detected, Influenza Type A (PCR) Not detected, Influenza Type B (PCR) Not detected, M. pneumoniae (PCR) Not detected, Parainfluenza 1 (PCR) Not detected, Parainfluenza 2 (PCR) Not detected, Parainfluenza 3 (PCR) Not detected, Parainfluenza 4 (PCR) Not detected, RSV (PCR) Not detected, Entero/Rhino (PCR) Not detected [facility] [place] HPI - General Stated complaint: cough, congestion Time Seen by Provider: 10/18/21 14:26 - History of Present Illness Provider Complaint: She states that she has had a cough, chest congestion, scratchy sore throat, chills and low grade fever for the past 2 days. - Related Data Home Medications Medication Instructions Recorded Confirmed Cetirizine HCl 10 mg PO DAILY 02/05/18 05/31/21 multivitamin 1 cap PO DAILY 06/10/19 05/31/21 Previous Rx's Medication Instructions Recorded Etodolac 200 mg PO TID PRN #15 cap 02/14/21 Azithromycin [Z-Jason 250mg Tab*] 250 mg PO UD DOSE PK #6 tab 10/18/21 Brompheniramine/Pseudoephed/Dm 5 ml PO Q6HP PRN #240 ml 10/18/21 [Bromfed Dm Cough Syrup] methylPREDNISolone [Medrol] 4 mg PO DIRECTED 6 Days #21 10/18/21 packet Allergies Allergy/AdvReac Type Severity Reaction Status Date / Time No Known Allergies Allergy Verified 05/31/21 10:51 [facility] History - Hepatitis A Screen Attestation statement:: This patient has been screened for Hepatitis A risk factors. I have reviewed the patient's past medical history: Yes Medical History: Reports:: Urinary Tract Infection Denies:: Cancer, Diabetes Mellitus Type 1, Diabetes Mellitus Type 2, MRSA Other Surgeries: Yes: Tubal Ligation, Other Amputation: No Frac
[2021-10-18 14:46] LABS: Adenovirus,PCR Not Detected (NotDetected); Bordetella Pertussis Not Detected (NotDetected); Chlamydophila Pneumoniae, PCR Not Detected (NotDetected); Coronavirus 19, PCR Not Detected (NotDetected); Coronavirus 229E Not Detected (NotDetected); Coronavirus NL63 Not Detected (NotDetected); Coronavirus OC43 Not Detected (NotDetected); Coronovirus HKU1,PCR Not Detected (NotDetected); Human Metapneumovirus Not Detected (NotDetected); Influenza A, PCR Not Detected (NotDetected); Influenza AH1, 2009 Not Detected (NotDetected); Influenza AH1, PCR Not Detected (NotDetected); Influenza AH3,PCR Not Detected (NotDetected); Influenza B, PCR Not Detected (NotDetected); Mycoplasma Pneumoniae, PCR Not Detected (NotDetected); Parainfluenza 1, PCR Not Detected (NotDetected); Parainfluenza 2, PCR Not Detected (NotDetected); Parainfluenza 3, PCR Not Detected (NotDetected); Parainfluenza 4, PCR Not Detected (NotDetected); Respiratory Syncytial Virus Not Detected (NotDetected); Rhinovirus/Enterovirus Not Detected (NotDetected)
[2021-10-18 14:57] VITALS: BP 117/80; PULSE 90; RESP 20; TEMP 37.1; O2SAT 98
== END 2021-10-18 15:19 | disposition home or self-care (01) ==
PROVIDERS: Emergency Provider Nurse Practitioner Family; PCP Nurse Practitioner Family
DX: J20.9 Acute bronchitis, unspecified (principal); Z20.822 Contact with and (suspected) exposure to COVID-19
CPT/HCPCS: 87581; 87632; 87798; 99202; C9803; G0463; U0003; U0005

== ENCOUNTER → 2021-11-07 10:52 | Outpatient (CLI) | payer OTHER, SELFPAY ==
--- NOTE | 2021-11-07 10:56 | MR_ITS ---
FINAL REPORT CLINICAL HISTORY: CERVICAL RADICULOPATHY. rt sided neck pain and pain around clavicle x2yrs. prior x-ray 03-29-21 FINDINGS: Multi planar MR imaging was obtained of the cervical spine. There is mild decreased signal throughout the cervical discs. The vertebrae are of normal height. There is no malalignment. The cervical cord demonstrates normal signal and configuration. C2-C3: There is no evidence of significant disc bulge or protrusion. There is no significant facet hypertrophy. C3-C4: There is no evidence of significant disc bulge or protrusion. There is no significant facet hypertrophy. C4-C5: There is a minimal left posterolateral disc protrusion with minimal left neural foraminal narrowing. C5-C6: There is no evidence of significant disc bulge or protrusion. There is no significant facet hypertrophy. C6-C7: There is no evidence of significant disc bulge or protrusion. There is no significant facet hypertrophy. C7-T1: There is no evidence of significant disc bulge or protrusion. There is no significant facet hypertrophy. IMPRESSION: Minimal left posterolateral disc protrusion at C4-5 with minimal left neural foraminal narrowing. Reviewed, Interpreted and Dictated by Johnny Mejia MD Transcribed by Mandi Head Authenticated by Johnny Mejia MD on 11/07/2021 01:57:11 PM [facility]
== END ==
PROVIDERS: PCP Nurse Practitioner Family; Visit Provider Anesthesiology
DX: M54.12 Radiculopathy, cervical region (principal)
CPT/HCPCS: 72141; 76376

== ENCOUNTER 2022-01-25 11:31 | Emergency (ER) | payer OTHER, SELFPAY ==
[2022-01-25 11:45] VITALS: BP 118/72; PULSE 77; RESP 18; TEMP 37; O2SAT 98; BMI 22.7
--- NOTE | 2022-01-25 12:19 | HMH.EDUTC ---
[facility] [place] Clinical Impression: Sinusitis Qualifiers: Sinusitis location: unspecified location Chronicity: acute Recurrence: non-recurrent Qualified Code(s): J01.90 - Acute sinusitis, unspecified Disposition: Home, Self-Care Condition on Discharge: Good Instructions: DI for Sinusitis Prescriptions: Benzonatate [Benzonatate 100mg cap] 100 mg PO TIDP PRN #30 cap PRN Reason: Cough Transmission Status: [facility] methylPREDNISolone [Medrol] 4 mg PO DIRECTED 6 Days #21 packet Transmission Status: [facility] Azithromycin [Z-Jason 250mg Tab*] 250 mg PO UD DOSE PK #6 tab Transmission Status: Received by [facility] Referrals: Radha Flynn [Primary Care Provider] - Time of Disposition: 12:56 Medical Decision Making - Medical Records Medical records reviewed: No: I reviewed the patient's medical records. - Claude Inquiry Pt receiving controlled substance: No Vital Signs: 01/25/22 11:45 01/25/22 13:06 Temperature 98.6 F 98.6 F Temperature Source Oral Pulse Rate 77 Pulse Rate [Right Brachial] 77 Respiratory Rate 18 18 Blood Pressure 118/72 Blood Pressure [Right Arm] 118/72 Blood Pressure Mean [Right Arm] 87 Blood Pressure Source [Right Arm] Automatic Cuff Blood Pressure Position [Right Arm] Sitting 02 Sat by Pulse Oximetry 98 Oxygen Delivery Method Room Air [facility] [place] H[place] - General Stated complaint: congestion Time Seen by Provider: 01/25/22 12:19 Mode of Arrival: Ambulatory Source of Information: Patient Limitations: No Limitations Description of Symptoms (Recalled from Triage Doc. by RN): PATIENT C/O COUGHING UP GREEN MUCOUS X 3 DAYS HEENT Symptoms (Recalled from RN notes): No Resp Symptoms (Recalled from RN notes): Yes Skin Symptoms (Recalled from RN notes): No MS Symptoms (Recalled from RN notes): No Functional Status (Recalled from RN notes): WNL - History of Present Illness Provider Complaint: She c/o sinus congestion, cough, and chest congestion for the past 3 days. She refuses any covid-19 or other swabs - Related Data Home Medications Medication Instructions Recorded Confirmed Cetirizine HCl 10 mg PO DAILY 02/05/18 05/31/21 multivitamin 1 cap PO DAILY 06/10/19 05/31/21 Previous Rx's Medication Instructions Recorded Etodolac 200 mg PO TID PRN #15 cap 02/14/21 Azithromycin [Z-Jason 250mg Tab*] 250 mg PO UD DOSE PK #6 tab 10/18/21 Brompheniramine/Pseudoephed/Dm 5 ml PO Q6HP PRN #240 ml 10/18/21 [Bromfed Dm Cough Syrup] methylPREDNISolone [Medrol] 4 mg PO DIRECTED 6 Days #21 10/18/21 packet Azithromycin [Z-Jason 250mg Tab*] 250 mg PO UD DOSE PK #6 tab 01/25/22 Benzonatate [Benzonatate 100mg 100 mg PO TIDP PRN #30 cap 01/25/22 cap] methylPREDNISolone [Medrol] 4 mg PO DIRECTED 6 Days #21 01/25/22 packet Allergies Allergy/AdvReac Type Severity Reaction Status Date / Time No Known Allergies Allergy Verified 05/31/21 10:51 - Worker's Comp Is this a Worker's Comp case?: No [facility] History - Hepatitis A Screen Attestation statement:: This patient has been screened for Hepatitis A risk factors. I have reviewed the patient's past medical history: Yes Medical History: Reports:: Urinary Tract Infection Denies:: Cancer, Diabetes Mellitus Type 1, Diabetes Mellitus Type 2, MRSA Other Surgeries: Yes: Tubal Ligation, Other Amputation: No Fractures: No Comment: TVT 2017. 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
[2022-01-25 13:06] VITALS: BP 118/72; PULSE 77; RESP 18; TEMP 37; O2SAT 98
== END 2022-01-25 13:07 | disposition home or self-care (01) ==
PROVIDERS: Emergency Provider Nurse Practitioner Family; PCP Nurse Practitioner Family
DX: J01.90 Acute sinusitis, unspecified (principal)
CPT/HCPCS: 99212; G0463

== ENCOUNTER → 2022-02-17 11:57 | Outpatient (CLI) | payer OTHER, SELFPAY ==
[2022-02-18 08:58] LABS: FSH 6.5 mIU/mL (.); LH 16.9 mIU/mL (.)
== END ==
PROVIDERS: PCP Nurse Practitioner Family; Visit Provider Nurse Practitioner Obstetrics & Gynecology
DX: N95.1 Menopausal and female climacteric states (principal); R53.82 Chronic fatigue, unspecified
CPT/HCPCS: 36415; 82670; 83001; 83002

== ENCOUNTER → 2022-08-20 10:42 | Outpatient (CLI) | payer OTHER, SELFPAY ==
--- NOTE | 2022-08-20 10:46 | MM_ITS ---
PROCEDURE INFORMATION: Exam: Bilateral Screening 3D Mammography Exam date and time: 08/20/2022 10:37 AM Age: 42 years old Clinical indication: Screening examination TECHNIQUE: Imaging protocol: Bilateral Screening tomosynthesis and 2D mammography including computer-aided detection (CAD) when performed. COMPARISON: No relevant prior studies available. FINDINGS: MAMMOGRAPHY: Breast composition: The breasts are extremely dense, which lowers the sensitivity of mammography. Mass: None. Architectural distortion: None. Calcifications: No suspicious calcifications. Asymmetric density: None. Skin thickening: None. Axillary adenopathy: None. IMPRESSION: No mammographic evidence of malignancy. Annual screening is recommended unless otherwise clinically indicated. ASSESSMENT: BI-RADS Category 1: Negative
== END ==
PROVIDERS: PCP Nurse Practitioner; Visit Provider Nurse Practitioner
DX: Z12.31 Encounter for screening mammogram for malignant neoplasm of breast (principal)
CPT/HCPCS: 77063; 77067

== ENCOUNTER 2022-09-06 11:58 | Emergency (ER) | payer OTHER, SELFPAY ==
[2022-09-06 12:20] VITALS: BP 131/76; PULSE 77; RESP 19; TEMP 36.7; O2SAT 98; BMI 23.3
[2022-09-06 12:58] LABS: UTC Strep Screen (Rapid) Negative (Negative)
--- NOTE | 2022-09-06 12:59 | EXP.UTC ---
Discharge Plan Disposition Patient Disposition: Home, Self-Care Condition: Good Prescriptions Prescriptions: New benzonatate 100 mg capsule 100 mg PO TID PRN (Reason: cough) Qty: 30 0RF azithromycin [Zithromax Z-Jason] 250 mg tablet See Rx Instructions .ROUTE .COMPLEX 5 Days Qty: 6 0RF Rx Instructions: For 250 mg dose pack: take 500 mg today (day 1), then 250 mg for 4 days (days 2-5) methylprednisolone [Medrol (Jason)] 4 mg tablets,dose pack See Rx Instructions .Route .COMPLEX 6 Days Qty: 21 0RF Rx Instructions: taper pack; No Action multivitamin Capsule 1 cap PO DAILY fluoxetine 10 mg capsule 40 mg PO DAILY trazodone 100 mg tablet 150 mg PO ONCE fluticasone propionate 50 mcg/actuation spray,suspension 1 spray intranasal PRN cetirizine 10 MG tablet 10 mg PO DAILY Referrals Follow up/Referrals: Karie Bautista APRN [Primary Care Provider] - See instructions Activity Restrictions/Add. Instructions Additional Instructions/Restrictions: *Monitor Temp, Over the counter Motrin or Tylenol as directed/as needed Tylenol every 4 hours and Motrin every 6 hours (as long as your family doctor has told you that you can take it) for fever or pain. and straight to ER if unable to lower temp less than 101.0 after medication given *Warm salt water gargles may help to soothe the throat *Throat Lozenges? *Warm fluids like tea with honey may help to soothe the throat? *Sleep elevated *Humidifier/Vaporizer Your throat swab was sent for culture. Those results are typically sent to your primary care. Be sure to follow up in 2-3 days with your family doctor/primary care physician if no improvement so they can review those result and treat if necessary. If you don?t have a primary care doctor, I recommend you get one but in the mean time, you will have to return to a walk in clinic Follow up IMMEDIATELY for new or worsening symptoms or no Noticeable improvement over the next 48-72 hours. 911 for difficulty breathing or swallowing Clinical Impressions Clinical Impression: Sinusitis Instructions Patient Instructions: DI for Sinusitis, Sinusitis, Sore Throat Discharge ED Provider: Shruti Jackson [facility] [place] HPI General Stated complaint: cough, fever, sore throat Mode of Arrival: Ambulatory Source of Information: Patient Limitations: No Limitations Time Seen by Provider: 09/06/22 12:59 Description of Symptoms (Recalled from Triage Doc. by RN): PATIENT C/O SORE THROAT AND COUGH X 3 DAYS HEENT Symptoms (Recalled from RN notes): Yes Resp Symptoms (Recalled from RN notes): Yes Skin Symptoms (Recalled from RN notes): No MS Symptoms (Recalled from RN notes): No Functional Status (Recalled from RN notes): WNL History of Present Illness Provider Complaint: Patient states that she has been having sinus congestion and pressure and blowing out blood tinged mucous from her nose, cough and sore throat that started 3 days ago States that she has continued to feel worse so she came in to get checked Related Data Home Medications Medication Instructions Recorded Confirmed cetirizine 10 mg tablet 10 mg PO DAILY ALLERGIES 02/05/18 06/10/22 multivitamin 1 cap PO DAILY Supplement 06/10/19 06/10/22 fluoxetine 10 mg capsule 40 mg PO DAILY 06/10/22 06/10/22 fluticasone propionate 50 1 spray intranasal PRN 06/10/22 06/10/22 mcg/actuation nasal spray,suspension trazodone 100 mg tablet 150 mg PO ONCE 06/10/22 06/10/22 Previous Rx's Medication Instructions Recorded azithromycin 250 mg tablet See Rx Instructions PO .COMPLEX 5 09/06/22 (Zithromax Z-Jason) days #6 tabs benzonatate 100 mg capsule 100 mg PO TID PRN cough #30 caps 09/06/22 methylprednisolone 4 mg tablets in See Rx Instructions .Route 09/06/22 a dose pack (Medrol (Jason)) .COMPLEX 6 days #21 tabs Allergies Allergy/AdvReac Type Severity Reaction Status Date / Time No Known Allergies Allergy Oj
[2022-09-06 13:13] VITALS: BP 131/76; PULSE 77; RESP 19; TEMP 36.7; O2SAT 98
== END 2022-09-06 13:15 | disposition home or self-care (01) ==
PROVIDERS: Emergency Provider Nurse Practitioner; PCP Nurse Practitioner
DX: J32.9 Chronic sinusitis, unspecified (principal)
CPT/HCPCS: 87880; 99212; G0463

== ENCOUNTER 2022-10-22 10:12 | Emergency (ER) | payer OTHER, SELFPAY ==
--- NOTE | 2022-10-22 10:57 | EXP.UTC ---
Discharge Plan Disposition Patient Disposition: Home, Self-Care Condition: Good Prescriptions Prescriptions: New methylprednisolone [Medrol (Jason)] 4 mg tablets,dose pack See Rx Instructions .Route .COMPLEX 6 Days Qty: 21 0RF Rx Instructions: taper pack; No Action multivitamin Capsule 1 cap PO DAILY fluoxetine 10 mg capsule 40 mg PO DAILY trazodone 100 mg tablet 150 mg PO ONCE fluticasone propionate 50 mcg/actuation spray,suspension 1 spray intranasal PRN cetirizine 10 MG tablet 10 mg PO DAILY benzonatate 100 mg capsule 100 mg PO TID PRN (Reason: cough) Qty: 30 0RF azithromycin [Zithromax Z-Jason] 250 mg tablet See Rx Instructions .ROUTE .COMPLEX 5 Days Qty: 6 0RF Rx Instructions: For 250 mg dose pack: take 500 mg today (day 1), then 250 mg for 4 days (days 2-5) methylprednisolone [Medrol (Jason)] 4 mg tablets,dose pack See Rx Instructions .Route .COMPLEX 6 Days Qty: 21 0RF Rx Instructions: taper pack; Referrals Follow up/Referrals: Karie Bautista APRN [Primary Care Provider] - See instructions Activity Restrictions/Add. Instructions Additional Instructions/Restrictions: Start oral steriods tomorrow Follow up with Family Doctor if symptoms persist Return if needed Straight to ER if any life threatening symptoms or loss of control of bowel or bladder Clinical Impressions Clinical Impression: Sciatica Qualifiers: Laterality: left Qualified Code(s): M54.32 - Sciatica, left side Instructions Patient Instructions: Sciatica, DI for Sciatica Discharge ED Provider: Shruti Jackson [facility] [place] General Stated complaint: Lt side back pain, no accident Time Seen by Provider: 10/22/22 10:57 History of Present Illness Provider Complaint: Patient states that she has history of sciatica States that she seen her PCP 2 wks ago for it States for the last couple of days she has been having flare up again she thinks States that she is having pain in her right lower back area that feels like it did when he sciatica started before Denies fever, denies loss of control of bowel or bladder and denies radiation of pain Related Data Home Medications Medication Instructions Recorded Confirmed cetirizine 10 mg tablet 10 mg PO DAILY ALLERGIES 02/05/18 06/10/22 multivitamin 1 cap PO DAILY Supplement 06/10/19 06/10/22 fluoxetine 10 mg capsule 40 mg PO DAILY 06/10/22 06/10/22 fluticasone propionate 50 1 spray intranasal PRN 06/10/22 06/10/22 mcg/actuation nasal spray,suspension trazodone 100 mg tablet 150 mg PO ONCE 06/10/22 06/10/22 Previous Rx's Medication Instructions Recorded azithromycin 250 mg tablet See Rx Instructions PO .COMPLEX 5 09/06/22 (Zithromax Z-Jason) days #6 tabs benzonatate 100 mg capsule 100 mg PO TID PRN cough #30 caps 09/06/22 methylprednisolone 4 mg tablets in See Rx Instructions .Route 09/06/22 a dose pack (Medrol (Jason)) .COMPLEX 6 days #21 tabs methylprednisolone 4 mg tablets in See Rx Instructions .Route 10/22/22 a dose pack (Medrol (Jaosn)) .COMPLEX 6 days #21 tabs Allergies Allergy/AdvReac Type Severity Reaction Status Date / Time No Known Allergies Allergy Verified 06/10/22 10:14 [facility] Disclaimer: The information contained in this section may have been updated after the patient was seen, as this information can be updated by other users. Medical History (Updated 10/22/22 @ 11:05 by Shruti Jackson APRN) Anxiety Surgical History H/O tubal ligation Family History (Updated 06/10/22 @ 10:18 by Anay Leo) Other Cancer Diabetes Heart attack Social History (Updated 09/06/22 @ 12:30 by Samara Hernández RN) Smoking Status: Never smoker second hand exposure: No alcohol intake: never substance use type: denies use current occupational status: other Travel in the last 8 weeks: None household members: family omid
[2022-10-22 11:02] VITALS: BP 110/66; PULSE 77; RESP 18; TEMP 36.6; O2SAT 99; BMI 22.8
[2022-10-22 11:28] VITALS: BP 110/66; PULSE 77; RESP 18; TEMP 36.6; O2SAT 99
== END 2022-10-22 11:42 | disposition home or self-care (01) ==
PROVIDERS: Emergency Provider Nurse Practitioner; PCP Nurse Practitioner
DX: M54.32 Sciatica, left side (principal)
CPT/HCPCS: 96372; 99212; 99213; G0463

== ENCOUNTER → 2023-09-03 16:14 | Outpatient (CLI) | payer OTHER, SELFPAY ==
--- NOTE | 2023-09-03 16:20 | MM_ITS ---
PROCEDURE INFORMATION: Exam: MG Bilateral Screening 3D Mammography Exam date and time: 09/03/2023 4:09 PM Age: 43 years old Clinical indication: Screening examination. Positive family history of breast cancer TECHNIQUE: Imaging protocol: Bilateral Screening tomosynthesis and 2D mammography including computer-aided detection (CAD) when performed. COMPARISON: MG MM DIG SCREENING MAMM BI W/CAD 08/20/2022 10:37 AM FINDINGS: MAMMOGRAPHY: Breast composition: The breasts are extremely dense, which lowers the sensitivity of mammography. Mass: None. Architectural distortion: None. Calcifications: No suspicious calcifications. Asymmetric density: None. Skin thickening: None. Axillary adenopathy: None. IMPRESSION: No mammographic evidence of malignancy. Annual screening is recommended unless otherwise clinically indicated. Given the reported risk factors coupled with the patient's breast density, a breast cancer risk assessment may prove useful for further evaluation. ASSESSMENT: BI-RADS Category 1: Negative
== END ==
PROVIDERS: PCP Nurse Practitioner; Visit Provider Nurse Practitioner
DX: Z12.31 Encounter for screening mammogram for malignant neoplasm of breast (principal)
CPT/HCPCS: 77063; 77067

== ENCOUNTER 2024-10-03 13:25 | Outpatient (CLI) | payer OTHER, SELFPAY ==
--- NOTE | 2024-10-03 13:28 | MM_ITS ---
PROCEDURE INFORMATION: Exam: MG Bilateral Screening 3D Mammography Exam date and time: 10/03/2024 1:18 PM Age: 44 years old Clinical indication: Screening examination TECHNIQUE: Imaging protocol: Bilateral Screening tomosynthesis and 2D mammography including computer-aided detection (CAD) when performed. COMPARISON: 1. MG MM DIG SCREENING MAMM BI W/CAD 09/03/2023 4:09 PM 2. MG MM DIG SCREENING MAMM BI W/CAD 08/20/2022 10:37 AM FINDINGS: MAMMOGRAPHY: Breast composition: The breasts are extremely dense, which lowers the sensitivity of mammography. Mass: None. Architectural distortion: None. Calcifications: No suspicious calcifications. Asymmetric density: None. Skin thickening: None. Axillary adenopathy: None. IMPRESSION: No mammographic evidence of malignancy. Annual screening is recommended unless otherwise clinically indicated. ASSESSMENT: BI-RADS Category 1: Negative.
== END 2024-10-03 23:59 | disposition home or self-care (01) ==
LOC: RAD 13:26
PROVIDERS: PCP Nurse Practitioner; Visit Provider Nurse Practitioner
DX: Z12.31 Encounter for screening mammogram for malignant neoplasm of breast (principal)
CPT/HCPCS: 77063; 77067

== ENCOUNTER 2024-10-16 11:19 | Emergency (ER) | payer OTHER, SELFPAY ==
[2024-10-16 12:25] VITALS: BP 118/71; PULSE 86; RESP 19; TEMP 36.8; O2SAT 97; BMI 28.5
[2024-10-16 12:38] LABS: UTC Influenza A Antigen Negative (Negative); UTC Influenza B Antigen Negative (Negative)
--- NOTE | 2024-10-16 12:40 | EXP.UTC ---
Discharge Plan Disposition Patient Disposition: Home, Self-Care Condition: Good Prescriptions Prescriptions: New yiftvtfhupnzovk-irntammzx-CU [Bromfed DM] 2-30-10 mg/5 mL syrup 5 ml PO Q6H PRN (Reason: cold symptoms) Qty: 200 0RF No Action levocetirizine 5 mg tablet 5 mg PO DAILY cetirizine 10 MG tablet 10 mg PO DAILY Referrals Follow up/Referrals: Karie Bautista APRN [Primary Care Provider] - See instructions Activity Restrictions/Add. Instructions Additional Instructions/Restrictions: *Monitor Temp, Over the counter Motrin or Tylenol as directed/as needed Tylenol every 4 hours and Motrin every 6 hours (as long as your family doctor has told you that you can take it) for fever or pain. and straight to ER if unable to lower temp less than 101.0 after medication given *Warm salt water gargles may help to soothe the throat *Throat Lozenges? *Warm fluids like tea with honey may help to soothe the throat? *Sleep elevated *Humidifier/Vaporizer *Bromfed may cause drowsiness. Know how it effects you (your child) before driving, caring for small child, or sending your child to school. Not other antihistamines/allergy medications while taking bromfed Follow up IMMEDIATELY for new or worsening symptoms or no Noticeable improvement over the next 48-72 hours. 911 for difficulty breathing or swallowing Clinical Impressions Clinical Impression: Viral upper respiratory infection Instructions Patient Instructions: DI for Viral Upper Respiratory Infection -- Adult Print Language Print Language: Urdu Discharge ED Provider: Shruti Jackson [facility] [place] HPI General Stated complaint: chills, sneezing, runny nose Mode of Arrival: Ambulatory Source of Information: Patient Limitations: No Limitations Time Seen by Provider: 10/16/24 12:40 Description of Symptoms (Recalled from Triage Doc. by RN): PATIENT C/O SNEEZING AND RUNNY NOSE X 2 DAYS HEENT Symptoms (Recalled from RN notes): Yes Resp Symptoms (Recalled from RN notes): No Skin Symptoms (Recalled from RN notes): No MS Symptoms (Recalled from RN notes): No Functional Status (Recalled from RN notes): WNL History of Present Illness Provider Complaint: Pt states that for the last couple of days she has been having sinus congestion, sneezing and cough States that she was worried she may have flu or something since it is going around so she came in to get tested Related Data Home Medications ?Medication ?Instructions ?Recorded ?Confirmed cetirizine 10 mg tablet 10 mg PO DAILY ALLERGIES 02/05/18 10/16/24 levocetirizine 5 mg tablet 5 mg PO DAILY 10/16/24 10/16/24 Previous Rx's ?Medication ?Instructions ?Recorded apinselnxdxnwpc-wwxzbwesjmcgons-FU 5 ml PO Q6H PRN cold symptoms #200 10/16/24 2 mg-30 mg-10 mg/5 mL oral syrup mL (Bromfed DM) Allergies Allergy/AdvReac Type Severity Reaction Status Date / Time No Known Allergies Allergy Verified 06/10/22 10:14 Worker's Comp Is this a Worker's Comp case?: No [facility] Disclaimer: The information contained in this section may have been updated after the patient was seen, as this information can be updated by other users. Medical History (Updated 10/16/24 @ 12:52 by Shruti Jackson APRN) Anxiety Surgical History H/O tubal ligation Family History (Updated 06/10/22 @ 10:18 by Anay Leo) Other Cancer Diabetes Heart attack Social History (Updated 09/06/22 @ 12:30 by Samara Hernández RN) Smoking Status: Never smoker second hand exposure: No alcohol intake: never substance use type: denies use current occupational status: other Travel in the last 8 weeks: None household members: family housing: house Have you lived/traveled outside US in past 30 days?: No Contact w/someone who lives/traveled outside US past 30 days?: No Exposure to someone with infectious disease in past 14 days?: No Do you have a fever (greater than 100.4 F or 38 C)?: No Have you tested positive for COVID-19: No Exposed to someone with COVID-19 in past 14 days?: No Do you have a sore throat?: No Do you have a cough?: No Do you have any weakness?: No Do you have any diarrhea?: No Are you experiencing any unusual bleeding?: No Do you have any muscle aches/pain?: No Do you have any abdominal pain?: No Are you experiencing loss of taste or smell?: No ROS Obtained: Yes All systems reviewed & no additional complaints except as documented and Yes Systems reviewed as appropriate & no additional complaints except as documented Constitutional Constitutional: Reports system reviewed and no additional complaints, except as documented and Reports as per HPI ENT Ears, Nose, Mouth, and Throat: Reports system reviewed and no additional complaints, except as documented, Reports as per HPI, Reports nasal congestion and Reports nasal discharge Cardiovascular Cardiovascular: Reports system reviewed and no additional complaints, except as documented and Reports as per HPI Respiratory Respiratory: Reports system reviewed and no additional complaints, except as documented, Reports as per HPI and Reports cough Gastrointestinal Gastrointestingal: Reports system reviewed and no additional complaints, except as documented and as per HPI Physical Exam General General appearance: alert and in no apparent distress Expanded ENT Exam Nose exam: Present other (reports clear drainage); Absent sinus tenderness Throat exam: Present normal inspection Respiratory Respiratory exam: Present normal lung sounds bilaterally; Absent respiratory distress or wheezes Cardiovascular Cardiovascular exam: Present regular rate, normal rhythm and normal heart sounds Abdominal Exam Abdominal exam: Present soft and normal bowel sounds; Absent distention or tenderness Neurological Exam Neurological exam: Present alert, oriented X3 and normal gait Medical Decision Making Medical Records Screening: Per USPSTF and CDC recommendations, given the prevalence of disease in our region, it is our hospital?s policy to screen for HIV and viral Hepatitis for all patients aged 18 and over and those with ongoing risk factors. Claude Inquiry Pt receiving controlled substance: No Claude was queried for this patient: No Vital Signs: 10/16/24 12:25 Temperature 98.2 F Temperature Source Oral Pulse Rate [Left Brachial] 86 Respiratory Rate 19 Blood Pressure [Left Arm] 118/71 Blood Pressure Mean [Left Arm] 86 Blood Pressure Source [Left Arm] Automatic Cuff Blood Pressure Position [Left Arm] Sitting 02 Sat by Pulse Oximetry 97 Oxygen Delivery Method Room Air Lab Data Lab results reviewed: Yes I reviewed the patient's lab results. Lab Results 10/16/24 12:23: Influenza Type A Ag Negative, Influenza Type B Ag Negative
[2024-10-16 12:53] VITALS: BP 118/71; PULSE 86; RESP 19; TEMP 36.8; O2SAT 97
== END 2024-10-16 12:56 | disposition home or self-care (01) ==
PROVIDERS: Emergency Provider Nurse Practitioner; PCP Nurse Practitioner
DX: J06.9 Acute upper respiratory infection, unspecified (principal)
CPT/HCPCS: 87804; 99212; G0381

== ENCOUNTER 2025-07-18 14:04 | Outpatient (CLI) | payer OTHER, SELFPAY ==
--- OUTSIDE RECORDS SUMMARY | 2025-06-08 11:45 | XMS_ITS | Encounter Summary ---
Demographics Address [address] [place] [address] Home Phone Preferred Language en Marital Status Catholic Affiliation Unknown Race White Ethnic Group Not or Lati no Author Organization Healthcare Address [address] [place] [address] Care Team Providers Care Salesperson New Cars Name Role Phone Pcp, No Primary Care Provider Unavailabl e Encounter Details Date Type Department Care Team (Late st Contact Info) Description 06/08/2025 12:45 PM EDT Office Visit [facility] [address] [place] [phone] Yolis Wu Pain, dental (Primary Dx) Social History Tobacco Use Types Packs/Day Years Used Date Smoking Tobacco: Never Assessed Comments Unknown Sex and Gender Information Value Date Recorded Sex Assigned at Not on file Legal Sex Female 1:28 PM EDT Gender Identity Not on file Sexual Orientation Not on file documented as of this encounter Miscellaneous Notes * Progress Notes - Yolis Wu - 06/08/2025 12:45 PM EDT Images from the original note were not included. Non-Surgical Endodontic Therapy Performed by: Yolis Wu Attending: Dr. Lopez [facility] HX: Health: No Changes to History. No contraindications to TX. BP: 135/86 p 75 Chief Complaint: I was told I need my root canal redone Location:#30 Intensity:0 Quality: Onset: Aggravating Factors: N/A Alleviating Factors: N/A Percussion:- Palpation: - Cold: - Pre-op Radiographic Interpretation- Radiographs taken PA and CBCT Prev tx #30 with poor fill. Large PARL RCT #30. DX: Previously treated and Asymptomatic apical periodontitis. Consent Obtained: The risks, benefits, indications, potential complications, and alternatives were explained to the patient and informed consent was obtained with good understanding. Description of procedure: Delivered 1 carpule of 2% Lidocaine w/1:100,000 Epi via TIERA and 1 carpule of 4% Septocaine w/1:100,000 Epi 1.7 mL via Infiltration. RDI Achieved. WL determined via [place] human services care specialist. Final WL - 21.0mm in MB canal, 21.0mm in ML canal, 21.0mm in DB canal, 19.0mm in DL canal, and 19.0mm in D canal Canals shaped to: MB 25, ML 25, D 25, DB 25, and DL 25 File system used: Protaper Gold Irrigants: 6% NaOCl; Sterile water, Q mix Activation: Endo Activator Dried canals. Conefit radiograph taken Placed corresponding size GP cones in each canal. Sealer: BC Sealer Seared off excess GP. Pentecostalism: BC Liner, Sponge, and RMGI Pt tolerated procedure well. Verified occlusion. Post Op Instructions given: Written and Verbally Pt was informed of the importance to get a final mormonism MONICA. Informed pt of increased risk offailure and fracture if he/she did not do this in a timely manner. Pt understood. Prognosis: Good Post Operative Pulpal DGX: Previous RCF: GP Complications: None / Disposition: Pt to return for final mormonism with general dentist/student dentist. PRE-POST OP RADIOGRAPHS Cosigned by Triston Lopez DMD at 06/09/2025 8:22 AM EDT Associated attestation - Triston Lopez DMD - 06/09/2025 8:22 AM EDT I saw and evaluated the patient with the java security engineer. I discussed the case with the java security engineer and agree with the findings and plan as documented. documented in this encounter Plan of Treatment Not on file documented as of this encounter Procedures Procedure Name Priority Date/Time Associated Diagnosis Comments 30 RETREATMENT OF PREVIOUS ROOT CANAL THERAPY - MOLAR Routine 06/08/2025 12:45 PM EDT Pain, dental documented in this encounter Visit Diagnoses Diagnosis Pain, dental- Primary documented in this encounter Additional Health Concerns Assessment Noted Time A Body Mass Index follow-up plan has been documented for the patient 06/08/2025 2:30 PM EDT documented as of this encounter Care Teams Salesperson New Cars Relationship Specialty Start Date End Date Pcp, No [address] [place] [address] PCP - General Family Medicine 04/18/25 documented as of this encounter
--- OUTSIDE RECORDS SUMMARY | 2025-07-18 14:09 | XMS_ITS | Clinical Summary ---
Demographics Address [address] [place] [address] Home Phone Preferred Language en Marital Status Sabianism Affiliation Unknown Race White Ethnic Group Not or Lati no Author Organization Healthcare Address [address] [place] [address] Care Team Providers Care Medical Staff Services Manager Name Role Phone Pcp, No Primary Care Provider Unavailabl e Encounters Date Type Department Care Team Description 06/08/2025 12:45 PM EDT Office Visit [facility] [address] [place] [phone] Yolis Wu dental (Primary Dx) 06/08/2025 Travel 05/09/2025 12:45 PM EDT Office Visit [facility] [address] [place] [phone] Pramod Lauren Dental abscess (Primary Dx) 05/09/2025 Travel from Last 3 Months Social History Tobacco Use Types Packs/Day Years Used Date Smoking Tobacco: Never Assessed Comments Unknown Sex and Gender Information Value Date Recorded Sex Assigned at Not on file Legal Sex Female 1:28 PM EDT Gender Identity Not on file Sexual Orientation Not on file Plan of Treatment Health Maintenance Due Date Last Done Comments Dental Oral Exam 1982 Dental Prophylaxis 1982 Dental X-Ray: Bitewings 1982 Dental X-Ray: Full Mouth 1982 [facility]-Depression Screening 1982 [facility]-HIV Screening 1982 [facility]-Hepatitis C Screening 1982 [facility]-/Child/Adol SDOH Screenings 1982 [facility]-Varicella Vaccines (1 of 2 - 13+ 2-dose series) 1995 [facility]- SDOH Screenings 2000 [facility]-Adult SDOH Screenings 2000 [facility]-Hepatitis B Vaccines (1 of 3 - 19+ 3-dose series) 2001 [facility]-Pap Smear 2003 HPV Vaccines (1 - 3-dose SCDM series) 2009 [facility]-Cervical Cancer Screening 2012 [facility]-HPV/Cotest 2012 [id number] Vaccine (3 - season) 2025 07/18/2021, 12/20/2020 [facility]-Influenza Vaccine (#1) 05/15/202506/18, 07/03/2022, 07/05/2021, Additional history exists [facility]-DTaP,Tdap,and Td Vaccines (2 - Td or Tdap) 04/15/2026 04/15/2016 [facility]-Zoster Vaccines (1 of 2) 2032 [facility]-Hepatitis A Vaccines Aged Out 10/20/2016, 10/2015 No longer eligible based on patient's age to complete this topic [facility]-HIB Vaccines Aged Out No longer e ligible based on patient's age to complete this topic [facility]-IPV Vaccines Aged Out No longer e ligible based on patient's age to complete this topic [facility]-Pneumococcal Vaccine: Pediatrics (0 to 5 Years) and At-Risk Patients (6 to 49 Years) Aged Out No longer eligible based on patient's age to complete this topic [facility]-Rotavirus Vaccines Aged Out No lo nger eligible based on patient's age to complete this topic Procedures Procedure Name Priority Date/Time Associated Diagnosis Comments 30 RETREATMENT OF PREVIOUS ROOT CANAL THERAPY - MOLAR Routine 06/08/2025 12:45 PM EDT Pain, dental [address] CAPTURE AND INTERPRETATION WITH LIMITED FIELD OF VIEW - LESS THAN 1 WHOLE JAW Routine 05/09/2025 12:45 PM EDT Dental abscess 30 INTRAORAL - PERIAPICAL FIRST RADIOGRAPHIC IMAGE Routine 05/09/2025 12:45 PM EDT Dental abscess LIMITED ORAL EVALUATION - PROBLEM FOCUSED Routine 05/09/2025 12:45 PM EDT Dental abscess from Last 3 Months Insurance [id number] [facility] [place] ROSALES [id number] [facility] Medicaid Dental Care Teams Medical Staff Services Manager Relationship Specialty Start Date End Date Pcp, [place] [address] [place] [address] PCP - General Family Medicine 04/18/25
--- OUTSIDE RECORDS SUMMARY | 2025-07-18 14:09 | XMS_ITS | Clinical Summary ---
Demographics Address [address] [place] [address] Home Phone Preferred Language Unknown Marital Status Unknown Taoism Affiliation Unknown Race Unknown Ethnic Group Unknown Author Organization [facility] Address [address] [place] [address] Care Team Providers Care Clinical Registered Nurse Name Role Phone Unavailable Primary Care Provider Unavailabl e Social History Tobacco Use Types Packs/Day Years Used Date Smoking Tobacco: Never Assessed Abuse Screen Answer Date Recorded Unsafe at Home or Work/School Not on file Feels Threatened by Someone? Not on file 06/2023 Does Anyone Keep You from Co ntacting Others or Doint Things Outside the Home? Not on file 06/23/2023 Physical Sign of Abuse Present Not on file 1 Housing Stability Answer Date Recorded Current Living Arrangements Not on file 06/14 Potentially Unsafe Housing Conditions Not on carlee e 06/23/2023 Family and Community Support Answer Michel e Recorded Help with Day-to-Day Activities Not on file 06/23/2023 Lonely or Isolated Not on file 06/23/2023 Employment Answer Date Recorded Do you want help finding or keeping work or a leticia b? Not on file 06/23/2023 Disabilities Answer Date Recorded Concentrating, Remembering, or Making Decisions Difficulty Not on file 06/23/2023 Doing Errands Independently Difficulty Not on fi le 06/23/2023 Education Answer Date Recorded Help with school or training? Not on file Preferred Language Not on file 06/23/2023 Comments Unknown Sex and Gender Information Value Date Recorded Sex Assigned at Not on file Legal Sex Female 1:39 PM EDT Gender Identity Not on file Sexual Orientation Not on file Plan of Treatment Health Maintenance Due Date Last Done Comments ANNUAL PHYSICAL 1982 Annual Gynecologic Pelvic an d Breast Exam 1982 HEPATITIS C SCREENING 1982 TDAP/TD VACCINES (1 - Tdap) 2001 MAMMOGRAM 2022 INFLUENZA VACCINE 04/14/2025 Pneumococcal Vaccine 0-49 Aged Out No longer eligible based on patient's age to complete this topic
--- OUTSIDE RECORDS SUMMARY | 2025-07-18 14:09 | XMS_ITS | Referral Summary ---
Author Organization [employer] [facility] ([place], [place], [place], [place], [place]) Address [address] [place] [address] Care Team Providers Care Edge Sander Name Role Phone Provider Not In System, McT Primary Care Provide r Unavailable Allergies No known active allergies Medications FLUoxetine (PROzac) 40 MG capsule Take 40 mg by mouth daily. 06/05/2022 Active traZODone (DESYREL) 150 MG tablet Take 150 mg by mouth nightly. 06/05/2022 Active cetirizine (ZyrTEC) 10 MG tablet Take 10 mg by mouth daily. 06/05/2022 Active guanFACINE 1 mg Tb24 Take 1 tablet by mouth daily. 07/23/2022 Active levocetirizine (XYZAL) 5 MG tablet Take 5 mg by mouth every evening. Active multivitamin capsule Take 1 capsule by mouth daily. Active Active Problems No known active problems Social History Tobacco Use Types Packs/Day Years Used Date Smoking Tobacco: Never Smokeless Tobacco: Never Alcohol Use Standard Drinks/Week Comments Never 0 (1 standard drink = 0.6 oz pur e alcohol) Food Insecurity Answer Date Recorded Food run out past 12 months Not on file 09/15 Food did not last past 12 months Not on file 10/03/2023 Employment Answer Date Recorded Help finding and keeping a job Not on file 0 10/03/2023 Family and Community Support Answer Michel e Recorded Help with Day to Day Activities Not on file 10/03/2023 Feeling Lonely or Isolated Not on file 10/03 Educational Attainment Answer Date Best rded Speak language other than Armenian at home Not on file 10/03/2023 Want help with school or training Not on file 10/03/2023 Substance Use Answer Date Recorded Used prescription meds for non-medical reasons N ot on file 10/03/2023 Used illegal drugs past 12 months Not on file 10/03/2023 Comments Unknown Sex and Gender Information Value Date Recorded Sex Assigned at Not on file Legal Sex Female 10:35 AM CDT Gender Identity Not on file Sexual Orientation Not on file Last Filed Vital Signs Vital Sign Reading Time Taken Comments Blood Pressure 99/59 07/31/2022 2:44 PM EST Pulse 60 07/31/2022 2:44 PM EST Temperature - - Respiratory Rate - - Oxygen Saturation - - Inhaled Oxygen Concentration - - Weight 69.4 kg (153 lb) 07/31/2022 2:44 PM EST Height 175.3 cm (5' 9 ) 07/31/2022 2:44 PM EST Body Mass Index 22.59 07/31/2022 2:44 PM EST Plan of Treatment Not on file Insurance [employer] [facility] Care Teams Edge Sander Relationship Specialty Start Date End Date Provider Not In System, Shawn PCP - General 07/31/22
--- OUTSIDE RECORDS SUMMARY | 2025-07-18 14:09 | XMS_ITS | Encounter Summary ---
Author Organization Healthcare Address [address] [place] [address] Care Team Providers Care Surveillance Investigator Name Role Phone Pcp, Cary Primary Care Provider Unavailabl e Encounter Details Date Type Department Care Team (Latest Contact Info) Description 06/08/2025 Travel Social History Tobacco Use Types Packs/Day Years Used Date Smoking Tobacco: Never Assessed Comments Unknown Sex and Gender Information Value Date Recorded Sex Assigned at Not on file Legal Sex Female 1:28 PM EDT Gender Identity Not on file Sexual Orientation Not on file documented as of this encounter Plan of Treatment Not on file documented as of this encounter Visit Diagnoses Not on filedocumented in this encounter Additional Health Concerns Assessment Noted Time A Body Mass Index follow-up plan has been documented for the patient 06/08/2025 2:30 PM EDT documented as of this encounter Care Teams Surveillance Investigator Relationship Specialty Start Date [place] [address] PCP - General Family Medicine 04/18/25 documented as of this encounter
--- OUTSIDE RECORDS SUMMARY | 2025-07-18 14:09 | XMS_ITS | Clinical Summary ---
Author Organization [employer] ([place], [place], [place], [place], [place]) Address [address] [place] [address] Care Team Providers Care Photoengraving Helper Name Role Phone Provider Not In System, [...] Active Active Problems No known active problems Family History Medical History Relation Name Comments No Known Problem Father No Known Problem Mother No Known Problem Other Relation Name Status Comments Father Mother Other Social History Tobacco Use Types Packs/Day Years [...] Date Best rded Speak language other than Faroese at home Not on file 10/03/2023 Want [...] 07/31/2022 2:44 PM EST Plan of Treatment Health Maintenance Due Date Last Done Comments Depression Screening (12+) 1994 HIV Screening 1997 Hepatitis C Screening 2000 DTAP/TDAP/TD VACCINES (1 - Tdap) 2001 Pap Smear 2003 Breast Cancer Screening 2022 Tobacco Cessation Counseling and Screening (12+) 07/31/2023 07/31/2022 COVID-19 VACCINE (1 - 2023-2 5 season) 2025 Influenza Vaccine (#1) 2025 Pneumococcal Vaccine: 0-49 Years Aged Out No longer eligible based on patient's age to complete this topic Insurance [facility] Care Teams Photoengraving Helper Relationship Specialty Start Date End Date Provider Not In System, Shawn PCP - General 07/31/22
--- NOTE | 2025-07-18 14:30 | US_ITS ---
PROCEDURE: US TRANSVAGINAL CLINICAL INDICATION: pelvic/hip pain COMPARISON: US US TRANSVAGINAL from 06/16/2019 FINDINGS: Transvaginal sonographic images of the pelvis were obtained. UTERUS: 7.4cm x 6.0cmx 5.3cm retroverted with a combined endometrial thickness of 5.9mm. There is a small amount of fluid within the lower uterine segment. There is a small hyperechoic area within the lower in segment. LEFT OVARY: 0.9 cmx1.3cmx2.9cm with a volume of 1.8ml. There are large varicosities in the left adnexa consistent with pelvic congestion. RIGHT OVARY: 3.6 cmx 2.2cmx0.8 cm with a volume of 3.4ml. There are multiple varicosities in the right adnexa consistent with pelvic congestion. Both ovaries are seen and appear normal. Doppler flow to both ovaries are seen. There is no fluid in the cul-de-sac. IMPRESSION: 1. Retroverted uterus normal in shape and size. The endometrium is thin measuring 5.9 mm. 2. There is a small collection of fluid in the lower uterine segment and a small hyperechoic area within the lower uterine segment. She has had a previous ablation. 3. Both ovaries are seen and appear atrophic. 4. No fluid in the cul-de-sac. Dictated by: Zen Ac MD 07/18/2025 16:23 Zen Ac MD in OV 07/18/2025 16:23
[2025-07-19 13:17] LABS: FSH 18.4 mIU/mL (.); LH 6.8 mIU/mL (.)
== END 2025-07-18 23:59 | disposition home or self-care (01) ==
LOC: RAD 14:04
PROVIDERS: PCP Nurse Practitioner; Visit Provider Nurse Practitioner Obstetrics & Gynecology
DX: N85.4 Malposition of uterus (principal); R93.89 Abnormal findings on diagnostic imaging of other specified body structures; N83.312 Acquired atrophy of left ovary; N83.311 Acquired atrophy of right ovary; N92.6 Irregular menstruation, unspecified; R10.20 Pelvic and perineal pain unspecified side; M25.559 Pain in unspecified hip; R23.2 Flushing; G47.00 Insomnia, unspecified; Z98.890 Other specified postprocedural states
CPT/HCPCS: 36415; 76830; 82670; 83001; 83002